=== PATIENT | female | born 1965 | race Caucasian/White ===

== ENCOUNTER 2024-04-30 09:38 | Outpatient (CLI) | payer BC, SELFPAY | END 2024-04-30 09:39 | disposition home or self-care (01) | LOC: NFLDREF 05-07 02:32 | PROVIDERS: Visit Provider Emergency Medicine | DX: Z13.1 Encounter for screening for diabetes mellitus (principal); Z13.6 Encounter for screening for cardiovascular disorders | CPT/HCPCS: 80061; 82947 ==